=== PATIENT | male | born 1955 | race Asian ===

== ENCOUNTER 2018-04-30 11:10 | Observation (INO) | payer OTHER ==
--- NOTE | 2018-04-30 12:51 | PDOC ---
History of Present Illness <Annie Hamilton - Last Filed: 04/30/18 16:55> - General History Source: Patient Exam Limitations: No Limitations - History of Present Illness Initial Comments: 04/30/18 16:11 Patient is a 62-year-old male with past medical history of CAD, who presents to the emergency department today for lower extremity edema. Patient states he has had this problem for the past 2 months, however it was worse last night so he decided to come to the emergency department today. Patient admits to approximately a 20 pound weight gain over the last 3 months. He states he has gone from a size 34 pant to a size 42 pant. He states he has also gone up a shoe size. Denies calf pain, shortness of breath, orthopnea and difficulty breathing. Patient endorses recent travel to [facility] with return trip yesterday. States that Cr at the PCP office was 1.6 6 months months ago. <Nicole Dolan - Last Filed: 04/30/18 17:29> - General Chief Complaint: Edema Stated Complaint: EDEMA Time Seen by Provider: 04/30/18 12:22 Past History <Annie Hamilton - Last Filed: 04/30/18 16:55> - Travel Traveled outside of the country in the last 30 days: Yes If so, where?: [place] Close contact w/someone who was outside of country & ill: No - Past Medical History COPD: No CHF: No Diabetes: Yes HTN: Yes Hypercholesterolemia: Yes Other medical history: bph - Surgical History Gastric Stapling: No Neurologic Surgery: No - Immunization History Immunization Up to Date: No - Suicide/Smoking/Psychosocial Hx Smoking History: Former smoker Have you smoked in the past 12 months: No Information on smoking cessation initiated: No Hx Alcohol Use: No Drug/Substance Use Hx: No Substance Use Type: None <Nicole Dolan - Last Filed: 04/30/18 17:29> - Past Medical History Allergies/Adverse Reactions: Allergies Allergy/AdvReac Type Severity Reaction Status Date / Time Sulfa (Sulfonamide Allergy Verified 12/19/15 12:19 Antibiotics) Home Medications: Ambulatory Orders Gabapentin 300 mg PO TID 12/19/15 Losartan/Hydrochlorothiazide [Losartan-Hctz 100-25 mg Tab] 1 each PO DAILY 12/18 Omeprazole [Prilosec] 40 mg PO DAILY 12/19/15 Aspirin [ASA -] 81 mg PO DAILY 04/30/18 Bumetanide 1 mg PO DAILY 04/30/18 Clonazepam 0.5 mg PO DAILY 04/30/18 Clonidine HCl/Chlorthalidone [Clorpres 0.1-15 Tablet] 0.1 mg PO DAILY 04/30/18 Insulin Glargine,Hum.rec.anlog [Basaglar Kwikpen U-100] 16 unit SQ DAILY Metoprolol Tartrate 50 mg PO DAILY 04/30/18 Sitagliptin Phosphate [Januvia] 100 mg PO DAILY 04/30/18 Tamsulosin HCl [Flomax] 0.4 mg PO DAILY 04/30/18 Vitamin E 400 unit PO DAILY 04/30/18 Review of Systems - Review of Systems Able to Perform ROS?: Yes Comments:: 04/30/18 16:08 CONSTITUTIONAL: Absent: fever, chills, diaphoresis, generalized weakness, malaise, loss of appetite HEENT: Absent: rhinorrhea, nasal congestion, throat pain, throat swelling, difficulty swallowing, mouth swelling, ear pain, eye pain, visual Changes CARDIOVASCULAR: Present: peripheral edema Absent: chest pain, loss of consciousness, palpitations, irregular heart rate RESPIRATORY: Absent: cough, shortness of breath, dyspnea with exertion, orthopnea, wheezing, stridor, hemoptysis GASTROINTESTINAL: Absent: abdominal pain, abdominal distension, nausea, vomiting, diarrhea, constipation, melena, hematochezia GENITOURINARY: Absent: dysuria, frequency, urgency, hesitancy, hematuria, flank pain, genital pain MUSCULOSKELETAL: Absent: myalgia, arthralgia, joint swelling SKIN: Absent: rash, itching, pallor HEMATOLOGIC/IMMUNOLOGIC: Absent: easy bleeding, easy bruising, lymphadenopathy, frequent infections ENDOCRINE: Absent: unexplained weight gain, unexplained weight loss, heat intolerance, cold intolerance NEUROLOGIC: Absent: headache, focal weakness or paresthesias, dizziness, unsteady gait, seizure, mental status changes, bladder or bowel incontinence PSYCHIATRIC: Absent: anxiety, depression, suicidal or homicidal ideation, hallucinations. Is the patient limited Andorran proficient: No <Nicole Dolan - Last Filed: 04/30/18 17:29> *Physical Exam - Vital Signs Last Vital Signs Temp Pulse Resp BP Pulse Ox 98.1 F 76 16 130/84 96 04/30/18 11:42 04/30/18 11:42 04/30/18 11:42 04/30/18 11:42 04/30/18 11:42 <JoyAnnie hernandez - Last Filed: 04/30/18 16:55> - Vital Signs Last Vital Signs Temp Pulse Resp BP Pulse Ox 98.1 F 76 16 130/84 96 04/30/18 11:42 04/30/18 11:42 04/30/18 11:42 04/30/18 11:42 04/30/18 11:42 - Physical Exam Comments: 04/30/18 16:08 GENERAL: Well developed, well nourished. Awake and alert. No acute distress. HEENT: Normocephalic, atraumatic. PERRLA, EOMI. No conjunctival pallor. Sclera are non- icteric. Moist mucous membranes. Oropharynx is clear. NECK: Supple. Full ROM. No JVD. Carotid pulses 2+ and symmetric, without bruits. No thyromegaly. No lymphadenopathy. CARDIOVASCULAR: Regular rate and rhythm. No murmurs, rubs, or gallops. Distal pulses are 2+ and symmetric. PULMONARY: No evidence of respiratory distress. Lungs clear to auscultation bilaterally. No wheezing, rales or rhonchi. ABDOMINAL: Soft. Non-tender. Protuberant abdomen. No rebound or guarding. No organomegaly. Normoactive bowel sounds. MUSCULOSKELETAL Normal range of motion at all joints. No bony deformities or tenderness. No CVA tenderness. EXTREMITIES: 3+ pitting edema to the knees. No cyanosis. No clubbing. No edema. No calf tenderness. (-) holger's test SKIN: Warm and dry. Normal capillary refill. No rashes. No jaundice. NEUROLOGICAL: Alert, awake, appropriate. Cranial nerves 2-12 intact. No deficits to light touch and temperature in face, upper extremities and lower extremities. No motor deficits in the in face, upper extremities and lower extremities. Normoreflexic in the upper and lower extremities. Normal speech. Toes are down- going bilaterally. Gait is normal without ataxia. PSYCHIATRIC: Cooperative. Good eye contact. Appropriate mood and affect. <Nicole Dolan - Last Filed: 04/30/18 17:29> ED Treatment Course - LABORATORY CBC & Chemistry Diagram: 04/30/18 13:33 04/30/18 13:33 - ADDITIONAL ORDERS Additional order review: Laboratory Results 04/30/18 04/30/18 04/30/18 13:33 13:33 12:40 PT with INR 12.60 INR 1.07 Sodium 138 Potassium 4.0 Chloride 100 Carbon Dioxide 29 Anion Gap 9 BUN 33 H Creatinine 2.7 H Creat Clearance w eGFR 23.99 Random Glucose 201 H Calcium 8.7 Total Bilirubin 0.4 AST 28 ALT 26 Alkaline Phosphatase 60 Creatine Kinase 214 Creatine Kinase Index 0.6 CK-MB (CK-2) 1.3 Troponin I 0.02 B-Natriuretic Peptide 27.9 Total Protein 7.8 Albumin 3.7 Urine Color Colorless Urine Appearance Clear Urine pH 5.0 Ur Specific [place] 1.005 L Urine Protein Negative Urine Glucose (UA) Negative Urine Ketones Negative Urine Blood Negative Urine Nitrite Negative Urine Bilirubin Negative Urine Urobilinogen Negative Ur Leukocyte Esterase Negative 04/30/18 13:33 RBC 4.29 MCV 82.6 MCHC 33.7 RDW 13.1 MPV 7.8 D Neutrophils % 43.9 Lymphocytes % 29.8 Monocytes % 9.1 Eosinophils % 16.3 H Basophils % 0.9 - Consult/PCP Time Called: 16:41 (Paged Dr. Dona Traore) - Additional Consults Time Called: 16:56 (Paged Dr. Eric [facility]. ) <Annie Hamilton - Last Filed: 04/30/18 16:55> - LABORATORY CBC & Chemistry Diagram: 04/30/18 13:33 04/30/18 13:33 <Nicole Dloan - Last Filed: 04/30/18 17:29> Medical Decision Making - Medical Decision Making 04/30/18 16:19 Patient is a 62-year-old male with past medical history of CAD, who presents to the emergency department today for lower extremity edema x 3 months, worse the last two days. (+) recent travel -Exam with 3+ pitting edema, protuberent abdomen without TPP. Lungs CTAB -Labs with Cr of 2.7 up from reported Cr of 1.6 -Pt in for duplex US given recent travel from [facility] -CXR with boarderline normal sized heart without evidence of effusion -EKG: Rate 67 BPM, NSR. qtc 408/431. No acute ST-T wav changes. -Lasix 20 IV for edema in the setting of CKD -Will admit for TIMMY and diuresis 04/30/18 17:28 -doppler negative for DVT, howerver there was a lymph node measuring [id number] in the R groin -Admitted to [facility], will go to [facility] in morning. Case discussed w/ TYPING CHECKER Lizzie. <Nicole Dolan - Last Filed: 04/30/18 17:29> *DC/Admit/Observation/Transfer <Annie Hamilton - Last Filed: 04/30/18 16:55> - Discharge Dispostion Decision to Admit order: Yes <Nicole Dolan - Last Filed: 04/30/18 17:29> Diagnosis at time of Disposition: TIMMY (acute kidney injury), Peripheral edema - Discharge Dispostion Condition at time of disposition: Stable - Referrals Referrals: Shawanda Rosales MD [Primary Care Provider] - - Patient Instructions - Post Discharge Activity
--- NOTE | 2018-04-30 13:44 | PDOC ---
*Physical Exam - Vital Signs Last Vital Signs Temp Pulse Resp BP Pulse Ox 98.1 F 76 16 130/84 96 04/30/18 11:42 04/30/18 11:42 04/30/18 11:42 04/30/18 11:42 04/30/18 11:42 - Physical Exam Comments: 04/30/18 13:44 The patient was examined by [WEN Dolan] under my direct supervision. I personally evaluated the patient. I concur with the above findings and the plan of care. *DC/Admit/Observation/Transfer - Referrals Referrals: Shawanda Rosales MD [Primary Care Provider] - - Patient Instructions - Post Discharge Activity
[2018-04-30 13:59] LABS: URINE APPEARANCE CLEAR; URINE BILIRUBIN NEGATIVE (<2.0 mg/dL); URINE COLOR COLORLESS; URINE GLUCOSE (UA) NEGATIVE (NEGATIVE); URINE KETONE NEGATIVE (NEGATIVE); URINE LEUK ESTERASE NEGATIVE (NEGATIVE); URINE NITRITE NEGATIVE (NEGATIVE); URINE PROTEIN NEGATIVE (NEGATIVE); URINE UROBILINOGEN NEGATIVE mg/dL (0.2-1.0)
[2018-04-30 14:09] LABS: BASO % 0.9 % (0-2.0); EOS % 16.3 % (0-4.5); HEMATOCRIT 35.5 % (35.4-49); LYMPH % 29.8 % (8-40); MCH 27.9 pg (25.7-33.7); MCHC 33.7 g/dl (32.0-35.9); MEAN CELL VOLUME 82.6 fl (80-96); MEAN PLT VOLUME 7.8 fl (7.5-11.1); MONO % 9.1 % (3.8-10.2); NEUT % 43.9 % (42.8-82.8); PLATELET COUNT 326 K/MM3 (134-434); RBC 4.29 M/mm3 (4.00-5.60); RDW 13.1 % (11.9-15.9); WHITE BLOOD COUNT 9.2 K/mm3 (4.0-10.0)
[2018-04-30 14:26] LABS: ALBUMIN 3.7 g/dl (3.4-5.0); ALK PHOS 60 U/L (45-117); ANION GAP 9 MMOL/L (8-16); BILIRUBIN,TOTAL 0.4 mg/dL (0.2-1); BLOOD UREA NITROGEN 33 mg/dL (7-18); CALCIUM 8.7 mg/dL (8.5-10.1); CHLORIDE 100 mmol/L (98-107); CO2 29 mmol/L (21-32); CREATININE 2.7 mg/dL (0.55-1.3); GLUCOSE,RANDOM 201 mg/dL (74-106); N-TERMINAL BNP 27.9 pg/ml (5-125); SGOT/AST 28 U/L (15-37); SGPT/ALT 26 U/L (13-61); SODIUM 138 mmol/L (136-145); TOT PROT 7.8 g/dl (6.4-8.2)
[2018-04-30 14:28] LABS: INR 1.07 (0.83-1.09); PROTHROMBIN TIME (PATIENT) 12.6 SEC (9.7-13.0)
--- NOTE | 2018-04-30 15:16 | EKG ---
Test Reason : Blood Pressure : / mmHG Vent. Rate : 067 BPM Atrial Rate : 067 BPM P-R Int : 172 ms QRS Dur : 090 ms QT Int : 408 ms P-R-T Axes : 028 058 050 degrees QTc Int : 431 ms NORMAL SINUS RHYTHM MINIMAL VOLTAGE CRITERIA FOR LVH, MAY BE NORMAL VARIANT BORDERLINE ECG NO PREVIOUS ECGS AVAILABLE Confirmed by DEENA LEVIN MD ([id number]) on 04/30/2018 3:16:05 PM Referred By: Confirmed By:DEENA LEVIN MD
[2018-04-30] MEDS ORDERED: FUROSEMIDE 40 MG/4 ML INJECTABLE VIAL IVPUSH ONE (16:05)
[2018-04-30] MEDS ORDERED: FUROSEMIDE 40 MG/4 ML INJECTABLE VIAL ONE (16:51)
--- NOTE | 2018-04-30 21:05 | HP ---
CHIEF COMPLAINT: Swelling to abdomen and lower legs PCP: Dr. Otis Rosales Homebound Teacher: Dr. Quinn HISTORY OF PRESENT ILLNESS: 62 year old male with a PMH significant for DM2 on insulin, HTN, and BPH presented to the ED today with increased swelling to lower legs and abdomen. He reports the swelling has gradually increased over the past month. He reports a 20 lb weight gain over the past 3 months; he has even gone up several pants sizes due to his increased abdominal girth. He is followed by reel slitter Dr. Quinn who did a renal US in his office about 2 months ago and was told he needed further renal work up (patient is unsure of which diagnostics were recommended). However, patient was set to travel to his home country of [facility] for 2 months, so he was unable to follow up. Patient endorses taking his medications regularly. Denies chest pain, SOB, hemoptysis, fever, dizziness , syncope, n/v/d. Given Lasix 20 mg IV, patient reported urination following administration. He reports now feeling "80% better" than when he first arrived. Labs significant for BUN/Cr 33/2.7, his last Cr was 1.65 on 03/09/18. Troponin #1 , #2 and #2 pending, negative UA negative, ECG unremarkable for acute ischemia , CXR negative for pleural effusion, and no DVT on evan doppler of lower legs unremarkable. Recent Travel: [facility] for 2 months, returned yesterday. PAST MEDICAL HISTORY: HTN DM2 on insulin BPH PAST SURGICAL HISTORY: None Social History: Smoking: Former, quit 10 years ago. Smoked for 10 - 15 years. Alcohol: None Drugs: Denies Family History: Father - Kidney cancer, age 90 Allergies Sulfa (Sulfonamide Antibiotics) Allergy (Verified 12/19/15 12:19) HOME MEDICATIONS: Home Medications Medication Instructions Recorded Gabapentin 300 mg PO TID 12/19/15 Losartan/Hydrochlorothiazide 1 each PO DAILY 12/19/15 [Losartan-Hctz 100-25 mg Tab] Omeprazole [Prilosec] 40 mg PO DAILY 12/19/15 Aspirin [ASA -] 81 mg PO DAILY 04/30/18 Bumetanide 1 mg PO DAILY 04/30/18 Clonazepam 0.5 mg PO DAILY 04/30/18 Clonidine HCl/Chlorthalidone 0.1 mg PO DAILY 04/30/18 [Clorpres 0.1-15 Tablet] Insulin Glargine,Hum.rec.anlog 14 units SQ HS 04/30/18 [Basaglar Kwikpen U-100] Insulin Glargine,Hum.rec.anlog 16 unit SQ DAILY 04/30/18 [Basaglar Kwikpen U-100] Metoprolol Tartrate 50 mg PO DAILY 04/30/18 Sitagliptin Phosphate [Januvia] 100 mg PO DAILY 04/30/18 Tamsulosin HCl [Flomax] 0.4 mg PO DAILY 04/30/18 Vitamin E 400 unit PO DAILY 04/30/18 REVIEW OF SYSTEMS CONSTITUTIONAL: (+) Weight gain Absent: fever, chills, diaphoresis, generalized weakness, malaise, loss of appetite HEENT: Absent: rhinorrhea, nasal congestion, throat pain, throat swelling, difficulty swallowing, mouth swelling, ear pain, eye pain, visual changes CARDIOVASCULAR: (+) Peripheral edema Absent: chest pain, syncope, palpitations, irregular heart rate, lightheadedness RESPIRATORY: Absent: cough, shortness of breath, dyspnea with exertion, orthopnea, wheezing, stridor, hemoptysis GASTROINTESTINAL: (+) Abdominal distension Absent: abdominal pain, nausea, vomiting, diarrhea, constipation, melena, hematochezia GENITOURINARY: (+) Frequency Absent: dysuria, urgency, hesitancy, hematuria, flank pain, genital pain MUSCULOSKELETAL: (+) Back and neck pain, chronic Absent: myalgia, arthralgia, joint swelling SKIN: Absent: rash, itching, pallor HEMATOLOGIC/IMMUNOLOGIC: Absent: easy bleeding, easy bruising, lymphadenopathy, frequent infections ENDOCRINE: Absent: unexplained weight gain, unexplained weight loss, heat intolerance, cold intolerance NEUROLOGIC: Absent: headache, focal weakness or paresthesias, dizziness, unsteady gait, seizure, mental status changes, bladder or bowel incontinence PSYCHIATRIC: Absent: anxiety, depression, suicidal or homicidal ideation, hallucinations. PHYSICAL EXAMINATION Vital Signs - 24 hr 04/30/18 04/30/18 11:42 19:28 Temperature 98.1 F 98.0 F Pulse Rate 76 Pulse Rate [ 66 Apical] Respiratory 16 18 Rate Blood Pressure 130/84 Blood Pressure 156/99 [Right Arm] O2 Sat by Pulse 96 98 Oximetry (%) GENERAL: Awake, alert, and fully oriented, in no acute distress. HEAD: Normal with no signs of trauma. EYES: +Glasses, pupils equal, round and reactive to light, extraocular movements intact, sclera anicteric, conjunctiva clear. No lid lag. EARS, NOSE, THROAT: nares patent, oropharynx clear without exudates. Moist mucous membranes. NECK: Normal range of motion, supple without lymphadenopathy, JVD, or masses. LUNGS: Breath sounds equal, clear to auscultation bilaterally. No wheezes, and no crackles. No accessory muscle use. HEART: Regular rate and rhythm, normal S1 and S2 without murmur, rub or gallop. ABDOMEN: Distended, nontender, normoactive bowel sounds, no guarding, no rebound, no masses. No hepatomegaly or splenomegaly. MUSCULOSKELETAL: Normal range of motion at all joints. No bony deformities or tenderness. No CVA tenderness. UPPER EXTREMITIES: 2+ pulses, warm, well-perfused. No cyanosis. No clubbing. No peripheral edema. LOWER EXTREMITIES: 2+ pitting edema to b/l LE, no weeping, warm, well-perfused. No calf tenderness. NEUROLOGICAL: No facial droop, tongue midline, normal speech. Normal gait. PSYCHIATRIC: Cooperative. Good eye contact. Appropriate mood and affect. SKIN: Warm, dry, normal turgor, no rashes or lesions noted, normal capillary refill. Laboratory Results - last 24 hr 04/30/18 04/30/18 04/30/18 12:40 13:33 13:33 WBC 9.2 RBC 4.29 Hgb 12.0 Hct 35.5 MCV 82.6 MCH 27.9 MCHC 33.7 RDW 13.1 Plt Count 326 MPV 7.8 D Absolute Neuts (auto) 4.0 Neutrophils % 43.9 Lymphocytes % 29.8 Monocytes % 9.1 Eosinophils % 16.3 H Basophils % 0.9 Nucleated RBC % 0 PT with INR 12.60 INR 1.07 Sodium Potassium Chloride Carbon Dioxide Anion Gap BUN Creatinine Creat Clearance w eGFR Random Glucose Calcium Total Bilirubin AST ALT Alkaline Phosphatase Creatine Kinase Creatine Kinase Index CK-MB (CK-2) Troponin I B-Natriuretic Peptide Total Protein Albumin Urine Color Colorless Urine Appearance Clear Urine pH 5.0 Ur Specific [place] 1.005 L Urine Protein Negative Urine Glucose (UA) Negative Urine Ketones Negative Urine Blood Negative Urine Nitrite Negative Urine Bilirubin Negative Urine Urobilinogen Negative Ur Leukocyte Esterase Negative 04/30/18 13:33 WBC RBC Hgb Hct MCV MCH MCHC RDW Plt Count MPV Absolute Neuts (auto) Neutrophils % Lymphocytes % Monocytes % Eosinophils % Basophils % Nucleated RBC % PT with INR INR Sodium 138 Potassium 4.0 Chloride 100 Carbon Dioxide 29 Anion Gap 9 BUN 33 H Creatinine 2.7 H Creat Clearance w eGFR 23.99 Random Glucose 201 H Calcium 8.7 Total Bilirubin 0.4 AST 28 ALT 26 Alkaline Phosphatase 60 Creatine Kinase 214 Creatine Kinase Index 0.6 CK-MB (CK-2) 1.3 Troponin I 0.02 B-Natriuretic Peptide 27.9 Total Protein 7.8 Albumin 3.7 Urine Color Urine Appearance Urine pH Ur Specific [place] Urine Protein Urine Glucose (UA) Urine Ketones Urine Blood Urine Nitrite Urine Bilirubin Urine Urobilinogen Ur Leukocyte Esterase ECG -NSR -Vent rate 67 -QT/QTc 408/431 CXR Degenerative changes with wedging, no sign of effusion. Venous Doppler, lower extremities doppler negative for DVT. Right inguinal lymph node measuring 4cm x 1cm. ASSESSMENT/PLAN: 62 year old male with a PMH significant for DM, HTN, and BPH presented to the ED today with increased swelling to lower legs and abdomen. He was admitted for TIMMY. TIMMY with possible anasarca -GFR 29 ml/min -Continue home Bumetanide 1 mg qday -Daily weights -I&Os -Monitor BMP -Renal US ordered -Echo ordered -Consult with patient's reel slitter Dr. Quinn ordered. DM -Hold home Januvia -Home Glargine changed to formulary Levemir 16 U qam and 14 U QHS -SS with Novolog -Monitor glucose AC/HS -Gabapentin 300 mg TID for neuropathy -Diabetic diet HTN -Clonidine 0.1 mg qday -HCZT 25 mg -Losartan 100 mg -Metoprolol Tartrate 50 mg qday BPH -Tamsulosin 0.4 mg qday FEN --PO intake adequate --Electrolytes replete as indicated --Diabetic/sodium restricted diet DVT Prophylaxis --Heparin SQ Dispo: pt currently requires further inpatient care. FULL CODE Visit type - Emergency Visit Emergency Visit: Yes ED Registration Date: 04/30/18 Care time: The patient presented to the Emergency Department on the above date and was hospitalized for further evaluation of their emergent condition. - New Patient This patient is new to me today: No - Critical Care Critical Care patient: No
[2018-04-30] MEDS ORDERED: GABAPENTIN 100 MG CAPSULE (FP) ONE (23:55)
[2018-04-30] MEDS ORDERED: HEPARIN NA (PORCINE) 5,000 UNITS/ML 1ML VIAL ONE (23:55)
[2018-04-30] MEDS ORDERED: INSULIN (LEVEMIR) 100 UNITS/ML UNITS SQ ONE (23:56)
[2018-05-01] MEDS: HEPARIN NA (PORCINE) 5,000 UNITS/ML 1ML VIAL SQ SCH ×3 (00:08→21:40)
[2018-05-01] MEDS: INSULIN (LEVEMIR) 100 UNITS/ML UNITS SQ SCH ×3 (00:08→21:45)
[2018-05-01] MEDS: INSULIN SLIDING SCALE (NOVOLOG) 1 VIAL SQ SCH ×5 (00:09→21:46)
[2018-05-01] MEDS: GABAPENTIN 300 MG CAPSULE (FP) PO SCH ×4 (00:09→21:40)
[2018-05-01 06:31] VITALS: BMI 27.3
[2018-05-01 08:46] LABS: HEMOGLOBIN 12.2 GM/dL (11.7-16.9); MCH 26.6 pg (25.7-33.7); MCHC 32.2 g/dl (32.0-35.9); MEAN CELL VOLUME 82.7 fl (80-96); MEAN PLT VOLUME 7.8 fl (7.5-11.1); PLATELET COUNT 329 K/MM3 (134-434); RBC 4.59 M/mm3 (4.00-5.60); RDW 13.1 % (11.9-15.9); WHITE BLOOD COUNT 11.2 K/mm3 (4.0-10.0)
[2018-05-01 09:33] LABS: ANION GAP 12 MMOL/L (8-16); BLOOD UREA NITROGEN 33 mg/dL (7-18); CALCIUM 8.5 mg/dL (8.5-10.1); CHLORIDE 97 mmol/L (98-107); CO2 30 mmol/L (21-32); CREATININE 2.6 mg/dL (0.55-1.3); GLUCOSE,RANDOM 191 mg/dL (74-106); POTASSIUM 4.2 mmol/L (3.5-5.1); SODIUM 139 mmol/L (136-145)
[2018-05-01] MEDS ORDERED: BUMETANIDE 1 MG TABLET PO SCH ×2 (10:00)
[2018-05-01] MEDS ORDERED: HYDROCHLOROTHIAZIDE 25 MG TABLET (FP) PO SCH (10:00)
[2018-05-01] MEDS ORDERED: PATIENT'S OWN MEDICATION (NON-FORMULARY) (Losartan/Hydrochlorothiazide [Losartan-Hctz 100- PO SCH (10:00)
[2018-05-01] MEDS ORDERED: CHLORTHALIDONE PO SCH (10:00)
[2018-05-01] MEDS ORDERED: LOSARTAN POTASSIUM 100 MG TABLET PO SCH (10:00)
[2018-05-01] MEDS ORDERED: [UNRECOGNIZED DRUG - OTHER] PO SCH (10:00)
[2018-05-01] MEDS ORDERED: FUROSEMIDE 40 MG/4 ML INJECTABLE VIAL IVPUSH SCH (10:00)
[2018-05-01] MEDS ORDERED: CLONIDINE PO SCH (10:00)
[2018-05-01] MEDS ORDERED: PT OWN MED DRAWER 7, Y5N ONE (10:08)
[2018-05-01] MEDS: ASPIRIN 81 MG CHEWABLE TABLETS PO SCH (10:11)
[2018-05-01] MEDS: TAMSULOSIN HCL 0.4 MG CAP PO SCH (10:11)
--- NOTE | 2018-05-01 10:44 | PN ---
Progress Note (short form) - Note Progress Note: events noted Denies any shortness of breath or cough Feels tired Vital Signs - 24 hr 04/30/18 04/30/18 05/01/18 11:42 19:28 04:25 Temperature 98.1 F 98.0 F 98.8 F Pulse Rate 76 Pulse Rate [ 66 74 Apical] Respiratory 16 18 18 Rate Blood Pressure 130/84 Blood Pressure 156/99 109/78 [Right Arm] O2 Sat by Pulse 96 98 99 Oximetry (%) 05/01/18 05/01/18 05/01/18 06:27 06:36 09:34 Temperature 97.5 F L 98.3 F Pulse Rate 65 73 Pulse Rate [ Apical] Respiratory 20 20 18 Rate Blood Pressure 134/79 151/94 Blood Pressure [Right Arm] O2 Sat by Pulse 98 Oximetry (%) Current Medications Generic Name Dose Route Start Last Admin Trade Name Freq PRN Reason Stop Dose Admin Aspirin 81 mg 05/01/18 10:00 05/01/18 10:11 Asa - PO 81 mg DAILY [facility] Administration Bumetanide 1 mg 05/01/18 10:00 Bumex - PO DAILY [facility] Gabapentin 300 mg 04/30/18 22:00 05/01/18 06:14 Neurontin - PO 300 mg TID [facility] Administration Heparin Sodium (Porcine) 5,000 unit 04/30/18 22:00 05/01/18 06:14 Heparin - SQ 5,000 unit TID [facility] Administration Hydrochlorothiazide 25 mg 05/01/18 10:00 05/01/18 10:11 Hctz - PO 25 mg DAILY [facility] Administration Insulin Aspart 1 vial 04/30/18 22:00 05/01/18 06:15 Novolog Vial Sliding Scale - SQ Not Given ACHS [facility] Protocol Insulin Detemir 16 units 05/01/18 07:00 05/01/18 06:14 Levemir Vial SQ 16 units 0700 [facility] Administration Insulin Detemir 14 units 04/30/18 22:00 05/01/18 00:08 Levemir Vial SQ 14 unit HS [facility] Administration Losartan Potassium 100 mg 05/01/18 10:00 Losartan Potassium PO DAILY [facility] Metoprolol Succinate 50 mg 05/01/18 10:00 05/01/18 10:11 Toprol Xl - PO 50 mg DAILY [facility] Administration Non-Formulary Medication 0.1 mg 05/01/18 10:00 Clonidine Hcl/Chlorthalidone [Clorpres 0.1-15 Tablet] PO DAILY [facility] Tamsulosin HCl 0.4 mg 05/01/18 08:30 05/01/18 10:11 Flomax - PO 0.4 mg 0830 [facility] Administration Laboratory Results - last 24 hr 04/30/18 04/30/18 04/30/18 12:40 13:33 13:33 WBC 9.2 RBC 4.29 Hgb 12.0 Hct 35.5 MCV 82.6 MCH 27.9 MCHC 33.7 RDW 13.1 Plt Count 326 MPV 7.8 D Absolute Neuts (auto) 4.0 Neutrophils % 43.9 Lymphocytes % 29.8 Monocytes % 9.1 Eosinophils % 16.3 H Basophils % 0.9 Nucleated RBC % 0 PT with INR 12.60 INR 1.07 Sodium Potassium Chloride Carbon Dioxide Anion Gap BUN Creatinine Creat Clearance w eGFR POC Glucometer Random Glucose Calcium Total Bilirubin AST ALT Alkaline Phosphatase Creatine Kinase Creatine Kinase Index CK-MB (CK-2) Troponin I B-Natriuretic Peptide Total Protein Albumin Urine Color Colorless Urine Appearance Clear Urine pH 5.0 Ur Specific [place] 1.005 L Urine Protein Negative Urine Glucose (UA) Negative Urine Ketones Negative Urine Blood Negative Urine Nitrite Negative Urine Bilirubin Negative Urine Urobilinogen Negative Ur Leukocyte Esterase Negative 04/30/18 04/30/18 05/01/18 13:33 23:35 05:43 WBC RBC Hgb Hct MCV MCH MCHC RDW Plt Count MPV Absolute Neuts (auto) Neutrophils % Lymphocytes % Monocytes % Eosinophils % Basophils % Nucleated RBC % PT with INR INR Sodium 138 Potassium 4.0 Chloride 100 Carbon Dioxide 29 Anion Gap 9 BUN 33 H Creatinine 2.7 H Creat Clearance w eGFR 23.99 POC Glucometer [phone] 61 Random Glucose 201 H Calcium 8.7 Total Bilirubin 0.4 AST 28 ALT 26 Alkaline Phosphatase 60 Creatine Kinase 214 Creatine Kinase Index 0.6 CK-MB (CK-2) 1.3 Troponin I 0.02 B-Natriuretic Peptide 27.9 Total Protein 7.8 Albumin 3.7 Urine Color Urine Appearance Urine pH Ur Specific [place] Urine Protein Urine Glucose (UA) Urine Ketones Urine Blood Urine Nitrite Urine Bilirubin Urine Urobilinogen Ur Leukocyte Esterase 05/01/18 05/01/18 05/01/18 06:13 07:00 07:00 WBC 11.2 H RBC 4.59 Hgb 12.2 Hct 38.0 MCV 82.7 MCH 26.6 MCHC 32.2 RDW 13.1 Plt Count 329 MPV 7.8 Absolute Neuts (auto) Neutrophils % Lymphocytes % Monocytes % Eosinophils % Basophils % Nucleated RBC % PT with INR INR Sodium Potassium Chloride Carbon Dioxide Anion Gap BUN Creatinine Creat Clearance w eGFR POC Glucometer 130 Random Glucose Calcium Total Bilirubin AST ALT Alkaline Phosphatase Creatine Kinase 198 Creatine Kinase Index 0.5 CK-MB (CK-2) < 1.0 Troponin I < 0.02 B-Natriuretic Peptide Total Protein Albumin Urine Color Urine Appearance Urine pH Ur Specific [place] Urine Protein Urine Glucose (UA) Urine Ketones Urine Blood Urine Nitrite Urine Bilirubin Urine Urobilinogen Ur Leukocyte Esterase 05/01/18 07:00 WBC RBC Hgb Hct MCV MCH MCHC RDW Plt Count MPV Absolute Neuts (auto) Neutrophils % Lymphocytes % Monocytes % Eosinophils % Basophils % Nucleated RBC % PT with INR INR Sodium 139 Potassium 4.2 Chloride 97 L Carbon Dioxide 30 Anion Gap 12 BUN 33 H Creatinine 2.6 H Creat Clearance w eGFR 25.05 POC Glucometer Random Glucose 191 H Calcium 8.5 Total Bilirubin AST ALT Alkaline Phosphatase Creatine Kinase 211 Creatine Kinase Index CK-MB (CK-2) Troponin I < 0.02 B-Natriuretic Peptide Total Protein Albumin Urine Color Urine Appearance Urine pH Ur Specific [place] Urine Protein Urine Glucose (UA) Urine Ketones Urine Blood Urine Nitrite Urine Bilirubin Urine Urobilinogen Ur Leukocyte Esterase S1 and S2 regular Lungs clear Abdomen soft, nontender Trace edema Plan Discontinue Charli inhibitors, arb --No NSAIDs --Renal evaluation --patient denies taking NSAIDs, he was started on diuretics on his trip to [facility] -- Continue diuretics -- Monitor renal function Problem List - Problems (1) TIMMY (acute kidney injury) Code(s): N17.9 - ACUTE KIDNEY FAILURE, UNSPECIFIED (2) Peripheral edema Code(s): R60.9 - EDEMA, UNSPECIFIED
[2018-05-01] MEDS ORDERED: LOSARTAN POTASSIUM 50 MG TABLET (FP) PO SCH (11:12)
[2018-05-01] MEDS ORDERED: INSULIN (NOVOLOG) ASPART 100 UNITS/ML 10ML VIAL ONE ×2 (11:24→21:15)
--- NOTE | 2018-05-01 15:01 | CONSULT ---
Consult Consult Specialty:: Nephrology Reason for Consultation:: CKD - History of Present Illness Chief Complaint: lower ext edema History of Present Illness: Pt is a 62 year old male with pmhx of DM, HTN, CKD, and BPH who presents to the ER with lower ext edema. He says that it has been getting worse and that he had a 20 pound weight gain. He was in [facility] where he went to see a doctor that started him on bumetanide 1 mg daily. He says that is did help with the edema. He did follow with Dr Quinn a few months ago but did not stay for his renal workup. He was advised not to travel however he did. I was called to evaluate him for elevated creatinine. He denies nsaid use. He was given lasix in the ER and felt better with it. - History Source History Provided By: Patient - Past Medical History Cardio/Vascular: Yes: HTN Gastrointestinal: Yes: GERD Renal/: Yes: Renal Inusuff Endocrine: Yes: Diabetes Mellitus - Alcohol/Substance Use Hx Alcohol Use: No - Smoking History Smoking history: Former smoker Have you smoked in the past 12 months: No If you are a former smoker, when did you quit?: 10 years ago Home Medications - Allergies Allergies/Adverse Reactions: Allergies Allergy/AdvReac Type Severity Reaction Status Date / Time Sulfa (Sulfonamide Allergy Verified 12/19/15 12:19 Antibiotics) - Home Medications Home Medications: Ambulatory Orders Gabapentin 300 mg PO TID 12/19/15 Losartan/Hydrochlorothiazide [Losartan-Hctz 100-25 mg Tab] 1 each PO DAILY 12/18 Omeprazole [Prilosec] 40 mg PO DAILY 12/19/15 Aspirin [ASA -] 81 mg PO DAILY 04/30/18 Bumetanide 1 mg PO DAILY 04/30/18 Clonazepam 0.5 mg PO DAILY 04/30/18 Clonidine HCl/Chlorthalidone [Clorpres 0.1-15 Tablet] 0.1 mg PO DAILY 04/30/18 Insulin Glargine,Hum.rec.anlog [Basaglar Kwikpen U-100] 14 units SQ HS 04/30/18 Insulin Glargine,Hum.rec.anlog [Basaglar Kwikpen U-100] 16 unit SQ DAILY Metoprolol Tartrate 50 mg PO DAILY 04/30/18 Sitagliptin Phosphate [Januvia] 100 mg PO DAILY 04/30/18 Tamsulosin HCl [Flomax] 0.4 mg PO DAILY 04/30/18 Vitamin E 400 unit PO DAILY 04/30/18 Family Disease History - Family Disease History Family Disease History: Other: Father (kidney disease) Review of Systems - Review of Systems Constitutional: reports: Malaise Eyes: reports: No Symptoms HENT: reports: No Symptoms Neck: reports: No Symptoms Cardiovascular: reports: Edema, Shortness of Breath Respiratory: reports: SOB on Exertion Genitourinary: reports: No Symptoms Musculoskeletal: reports: No Symptoms Integumentary: reports: No Symptoms Neurological: reports: No Symptoms Endocrine: reports: No Symptoms Hematology/Lymphatic: reports: No Symptoms Psychiatric: reports: No Symptoms Physical Exam Vital Signs: Vital Signs Temperature 98.3 F 05/01/18 09:34 Pulse Rate 73 05/01/18 09:34 Respiratory Rate 18 05/01/18 09:34 Blood Pressure 151/94 05/01/18 09:34 O2 Sat by Pulse Oximetry (%) 99 05/01/18 09:00 Constitutional: Yes: Calm Eyes: Yes: Conjunctiva Clear HENT: Yes: Atraumatic Cardiovascular: Yes: S1, S2 Respiratory: Yes: CTA Bilaterally Gastrointestinal: Yes: Soft Renal/: Yes: WNL Musculoskeletal: Yes: WNL Edema: Yes Edema: LLE: 1+, RLE: 1+ Neurological: Yes: Oriented Psychiatric: Yes: Oriented Labs: CBC, BMP 05/01/18 07:00 05/01/18 07:00 Laboratory Tests 04/30/18 04/30/18 04/30/18 12:40 13:33 13:33 WBC Hgb 12.0 Creatinine 2.7 H Ur Specific Alexander 1.005 L Urine Protein Negative Urine Blood Negative 05/01/18 05/01/18 07:00 07:00 WBC 11.2 H Hgb 12.2 Creatinine 2.6 H Ur Specific Alexander Urine Protein Urine Blood Imaging - Results Chest X-ray: Report Reviewed Ultrasound: Report Reviewed Problem List - Problems (1) CKD (chronic kidney disease) Code(s): N18.9 - CHRONIC KIDNEY DISEASE, UNSPECIFIED (2) Peripheral edema Code(s): R60.9 - EDEMA, UNSPECIFIED Assessment/Plan Current Medications Generic Name Dose Route Start Last Admin Trade Name Freq PRN Reason Stop Dose Admin Aspirin 81 mg 05/01/18 10:00 05/01/18 10:11 Asa - PO 81 mg DAILY ARACELI Administration Gabapentin 300 mg 04/30/18 22:00 05/01/18 13:58 Neurontin - PO 300 mg TID ARACELI Administration Heparin Sodium (Porcine) 5,000 unit 05/01/18 22:00 Heparin - SQ BID ARACELI Hydralazine HCl 25 mg 05/01/18 22:00 Apresoline - PO BID ARACELI Insulin Aspart 1 vial 04/30/18 22:00 05/01/18 11:25 Novolog Vial Sliding Scale - SQ 2 unit ACHS ARACELI Administration Protocol Insulin Detemir 16 units 05/01/18 07:00 05/01/18 06:14 Levemir Vial SQ 16 units 0700 ARACELI Administration Insulin Detemir 14 units 04/30/18 22:00 05/01/18 00:08 Levemir Vial SQ 14 unit HS ARACELI Administration Metoprolol Succinate 50 mg 05/01/18 10:00 05/01/18 10:11 Toprol Xl - PO 50 mg DAILY ARACELI Administration Tamsulosin HCl 0.4 mg 05/01/18 08:30 05/01/18 10:11 Flomax - PO 0.4 mg 0830 ARACELI Administration Impression 1. CKD 2. HTN 3. DM 4. edema/fluid overload 5. BPH Plan - ua neg for blood or protein - cont with diuretics - check echo - renal ultrasound reviewed - cont to monitor renal function - could be cardiorenal disease in the absence of abnormalities on UA - will follow - will call for outpt records - discussed low salt diet with patient and family at length. He is eating food from home which is very salty. Dr Emanuel
--- NOTE | 2018-05-01 15:31 | ECHO ---
Name: KELVIN PEREIRA Exam:Adult Echocardiogram Study Date: 05/01/2018 12:30 PM Age: 62 yrs Reason For Study: TIMMY with anasarca Height: 64 in Weight: 160 lb BSA: 1.8 m2 MMode/2D Measurements & Calculations IVSd: 0.98 cm Ao root diam: 3.6 cm LVIDd: 4.8 cm LA dimension: 3.7 cm LVIDs: 3.2 cm ACS: 1.9 cm LVPWd: 0.92 cm IVSs: 1.2 cm LVPWs: 1.1 cm EDV(Teich): 108.1 ml ESV(Teich): 41.5 ml Doppler Measurements & Calculations MV E max cristian: 49.6 cm/sec Ao V2 max: 157.2 cm/sec MV A max cristian: 72.1 cm/sec Ao max P.9 mmHg MV E/A: 0.69 Ao V2 mean: 95.8 cm/sec Ao mean P.5 mmHg Ao V2 VTI: 28.3 cm MR max cristian: 470.6 cm/sec TR max cristian: 195.7 cm/sec MR max P.6 mmHg TR max P.3 mmHg PI end-d cristian: 120.8 cm/sec Med Peak E' Cristian: 4.8 cm/sec Med E/e': 10.4 Lat Peak E' Cristian: 6.7 cm/sec Lat E/e': 7.4 Procedure A complete two-dimensional transthoracic echocardiogram was performed (2D, M-mode, Doppler and color flow Doppler). Left Ventricle The left ventricular size, thickness and function are normal. The left ventricular ejection fraction is normal. Ejection Fraction = 55-60%. The left ventricular wall motion is normal. Right Ventricle The right ventricle is normal in size and function. Atria Normal left and right atrial size and function. Mitral Valve There is trace mitral regurgitation. Tricuspid Valve No tricuspid regurgitation. There was insufficient TR detected to calculate RV systolic pressure. Aortic Valve The aortic valve is trileaflet. No hemodynamically significant valvular aortic stenosis. No aortic regurgitation is present. Pulmonic Valve There is no pulmonic valvular regurgitation. Great Vessels The aortic root is normal size. Pericardium/Pleura There is no pericardial effusion. Interpretation Summary The left ventricular size, thickness and function are normal The right ventricle is normal in size and function. There is trace mitral regurgitation. MD Chino Bennett 05/01/2018 03:30 PM
[2018-05-01 19:41] VITALS: TEMP 98.2
[2018-05-01] MEDS: hydrALAZINE HCL 25 MG TABLET (FP) PO SCH (21:40)
[2018-05-02] MEDS: GABAPENTIN 300 MG CAPSULE (FP) PO SCH (05:53)
[2018-05-02] MEDS: INSULIN SLIDING SCALE (NOVOLOG) 1 VIAL SQ SCH ×2 (05:59→11:07)
[2018-05-02] MEDS: INSULIN (LEVEMIR) 100 UNITS/ML UNITS SQ SCH (05:59)
[2018-05-02 07:49] LABS: ALBUMIN 3.5 g/dl (3.4-5.0); ALK PHOS 57 U/L (45-117); ANION GAP 8 MMOL/L (8-16); BILIRUBIN,TOTAL 0.3 mg/dL (0.2-1); BLOOD UREA NITROGEN 27 mg/dL (7-18); CALCIUM 8.9 mg/dL (8.5-10.1); CHLORIDE 100 mmol/L (98-107); CO2 30 mmol/L (21-32); CREATININE 2.3 mg/dL (0.55-1.3); GLUCOSE,RANDOM 115 mg/dL (74-106); POTASSIUM 4.3 mmol/L (3.5-5.1); SGOT/AST 24 U/L (15-37); SGPT/ALT 25 U/L (13-61); SODIUM 138 mmol/L (136-145); TOT PROT 7.4 g/dl (6.4-8.2)
[2018-05-02] MEDS: TAMSULOSIN HCL 0.4 MG CAP PO SCH (09:41)
[2018-05-02] MEDS: ASPIRIN 81 MG CHEWABLE TABLETS PO SCH (09:42)
[2018-05-02] MEDS: HEPARIN NA (PORCINE) 5,000 UNITS/ML 1ML VIAL SQ SCH (09:42)
[2018-05-02] MEDS: hydrALAZINE HCL 25 MG TABLET (FP) PO SCH (09:42)
[2018-05-02] MEDS ORDERED: BUMETANIDE 1 MG TABLET PO SCH (10:00)
--- NOTE | 2018-05-02 11:12 | PN ---
Progress Note, Physician History of Present Illness: Pt seen and examined at bedside. He is awake and alert. He denies shortness of breath. - Current Medication List Current Medications: Active Medications Aspirin (Asa -) 81 mg PO DAILY [facility] Last Admin: 05/02/18 09:42 Dose: 81 mg Gabapentin (Neurontin -) 300 mg PO TID [facility] Last Admin: 05/02/18 05:53 Dose: 300 mg Heparin Sodium (Porcine) (Heparin -) 5,000 unit SQ BID [facility] Last Admin: 05/02/18 09:42 Dose: 5,000 unit Hydralazine HCl (Apresoline -) 25 mg PO BID [facility] Last Admin: 05/02/18 09:42 Dose: 25 mg Insulin Aspart (Novolog Vial Sliding Scale -) 1 vial SQ ACHS [facility]; Protocol Last Admin: 05/02/18 11:07 Dose: 4 unit Insulin Detemir (Levemir Vial) 16 units SQ 0700 [facility] Last Admin: 05/02/18 05:59 Dose: 16 units Insulin Detemir (Levemir Vial) 14 units SQ HS [facility] Last Admin: 05/01/18 21:45 Dose: 14 unit Metoprolol Succinate (Toprol Xl -) 50 mg PO DAILY [facility] Last Admin: 05/02/18 09:42 Dose: 50 mg Tamsulosin HCl (Flomax -) 0.4 mg PO 0830 [facility] Last Admin: 05/02/18 09:41 Dose: 0.4 mg - Objective Vital Signs: Vital Signs Temperature 98.2 F 05/02/18 06:00 Pulse Rate 71 05/02/18 06:00 Respiratory Rate 16 05/02/18 06:00 Blood Pressure 115/82 05/02/18 06:00 O2 Sat by Pulse Oximetry (%) 98 05/01/18 21:00 Constitutional: Yes: Calm Eyes: Yes: Conjunctiva Clear HENT: Yes: Atraumatic Cardiovascular: Yes: S1, S2 Respiratory: Yes: CTA Bilaterally Gastrointestinal: Yes: Soft Genitourinary: Yes: WNL Musculoskeletal: Yes: WNL Extremities: Yes: WNL Edema: No Neurological: Yes: Oriented Psychiatric: Yes: Oriented Labs: CBC, BMP 05/01/18 07:00 05/02/18 06:36 INR, PTT INR 1.07 (0.83-1.09) 04/30/18 13:33 - ....Imaging Ultrasound: Report Reviewed Problem List - Problems (1) CKD (chronic kidney disease) Code(s): N18.9 - CHRONIC KIDNEY DISEASE, UNSPECIFIED (2) Peripheral edema Code(s): R60.9 - EDEMA, UNSPECIFIED Assessment/Plan Current Medications Generic Name Dose Route Start Last Admin Trade Name Oksana PRN Reason Stop Dose Admin Aspirin 81 mg 05/01/18 10:00 05/02/18 09:42 Asa - PO 81 mg DAILY ARACELI Administration Gabapentin 300 mg 04/30/18 22:00 05/02/18 05:53 Neurontin - PO 300 mg TID ARACELI Administration Heparin Sodium (Porcine) 5,000 unit 05/01/18 22:00 05/02/18 09:42 Heparin - SQ 5,000 unit BID ARACELI Administration Hydralazine HCl 25 mg 05/01/18 22:00 05/02/18 09:42 Apresoline - PO 25 mg BID ARACELI Administration Insulin Aspart 1 vial 04/30/18 22:00 05/02/18 11:07 Novolog Vial Sliding Scale - SQ 4 unit ACHS ARACELI Administration Protocol Insulin Detemir 16 units 05/01/18 07:00 05/02/18 05:59 Levemir Vial SQ 16 units 0700 ARACELI Administration Insulin Detemir 14 units 04/30/18 22:00 05/01/18 21:45 Levemir Vial SQ 14 unit HS ARACELI Administration Metoprolol Succinate 50 mg 05/01/18 10:00 05/02/18 09:42 Toprol Xl - PO 50 mg DAILY ARACELI Administration Tamsulosin HCl 0.4 mg 05/01/18 08:30 05/02/18 09:41 Flomax - PO 0.4 mg 0830 ARACELI Administration Impression 1. CKD 2. HTN 3. DM 4. edema/fluid overload 5. BPH 6. nephrolithiasis Plan - renal function is improving - volume status is stable - will need outpt follow up and renal workup - avoid nsaids - low salt diet - echo reviewed - renal ultrasound reviewed - pt will follow with Dr Quinn after discharge Dr Emanuel
--- NOTE | 2018-05-02 11:28 | DS ---
Physical Examination Vital Signs: Vital Signs Temperature 98.2 F 05/02/18 06:00 Pulse Rate 71 05/02/18 06:00 Respiratory Rate 16 05/02/18 06:00 Blood Pressure 115/82 05/02/18 06:00 O2 Sat by Pulse Oximetry (%) 98 05/01/18 21:00 Findings/Remarks: patient seen and examined. Chart reviewed. Week and comfortable. Sitting in chair. No complaints. Wants to go home. Constitutional: Yes: No Distress, Calm Eyes: Yes: Conjunctiva Clear Neck: Yes: Supple Cardiovascular: Yes: Regular Rate and Rhythm Respiratory: Yes: CTA Bilaterally Gastrointestinal: Yes: Soft Edema: No Neurological: Yes: Alert Psychiatric: Yes: Alert Labs: CBC, BMP 05/01/18 07:00 05/02/18 06:36 Discharge Summary Reason For Visit: ACUTE KID INJURY/PHERIPHERAL EDEMA Current Active Problems TIMMY (acute kidney injury) (Acute) CKD (chronic kidney disease) (Acute) Peripheral edema (Acute) Hospital Course: 62 year old male with a PMH significant for DM2 on insulin, HTN, and BPH presented to the ED with increased swelling to lower legs and abdomen. He reports the swelling has gradually increased over the past month. He reports a 20 lb weight gain over the past 3 months; he has even gone up several pants sizes due to his increased abdominal girth. He is followed by content administrator Dr. Quinn who did a renal US in his office about 2 months ago and was told he needed further renal work up (patient is unsure of which diagnostics were recommended). However, patient was set to travel to his home country of [facility] for 2 months, so he was unable to follow up. Patient endorses taking his medications regularly. Denies chest pain, SOB, hemoptysis, fever, dizziness , syncope, n/v/d. Given Lasix 20 mg IV, patient reported urination following administration. He reports now feeling "80% better" than when he first arrived. Labs significant for BUN/Cr 33/2.7, his last Cr was 1.65 on 03/09/18. Troponin #1 , #2 and #2 pending, negative UA negative, ECG unremarkable for acute ischemia , CXR negative for pleural effusion, and no DVT on evan doppler of lower legs unremarkable. Recent Travel: [facility] for 2 months, returned yesterday. PAST MEDICAL HISTORY: HTN DM2 on insulin BPH PAST SURGICAL HISTORY: None patient treated with fluids Nephrology followed Stabilized Counseled about diet also Has ultrasound done today----question about gallbladder mass discussed with Patient in detail Patient would like to get MRI done as outpatient----would like to go home today I also agree that this can be done as outpatient Patient instructed to follow his PMD Dr. Rosales coming week Also advised to follow with content administrator as advised Medications reconciled Discussed with nursing staff also will discharge today Patient in agreement with all above. Condition: Improved - Instructions Diet, Activity, Other Instructions: Need MRI Gall bladder as out pt. f/u with next week F/u with Renal as advised Referrals: Shawanda Rosales MD [Primary Care Provider] - Disposition: HOME - Home Medications Comprehensive Discharge Medication List: Ambulatory Orders Gabapentin 300 mg PO TID 12/19/15 Losartan/Hydrochlorothiazide [Losartan-Hctz 100-25 mg Tab] 1 each PO DAILY 12/18 Omeprazole [Prilosec] 40 mg PO DAILY 12/19/15 Aspirin [ASA -] 81 mg PO DAILY 04/30/18 Clonazepam 0.5 mg PO DAILY 04/30/18 Clonidine HCl/Chlorthalidone [Clorpres 0.1-15 Tablet] 0.1 mg PO DAILY 04/30/18 Insulin Glargine,Hum.rec.anlog [Basaglar Kwikpen U-100] 14 units SQ HS 04/30/18 Insulin Glargine,Hum.rec.anlog [Basaglar Kwikpen U-100] 16 unit SQ DAILY Metoprolol Tartrate 50 mg PO DAILY 04/30/18 Sitagliptin Phosphate [Januvia] 100 mg PO DAILY 04/30/18 Tamsulosin HCl [Flomax] 0.4 mg PO DAILY 04/30/18 Vitamin E 400 unit PO DAILY 04/30/18 hydrALAZINE HCL [Apresoline -] 25 mg PO BID #60 tablet 05/02/18
[2018-05-02 12:14] VITALS: BP 145/85; PULSE 66
== END 2018-05-02 13:20 | disposition home or self-care (01) ==
LOC: JER 11:10 → JERBED 16:52 → J6S 05-01 05:26
PROVIDERS: ADMIT Hospitalist; ATTEND Internal Medicine
PROC: 3E033GC Introduction of Other Therapeutic Substance into Peripheral Vein, Percutaneous Approach (ICD-10-PCS; principal; 2018-04-30)
PROC: 3E013VG Introduction of Insulin into Subcutaneous Tissue, Percutaneous Approach (ICD-10-PCS; 2018-04-30)
PROC: 3E013GC Introduction of Other Therapeutic Substance into Subcutaneous Tissue, Percutaneous Approach (ICD-10-PCS; 2018-04-30)
DX: N17.9 Acute kidney failure, unspecified (principal); E11.22 Type 2 diabetes mellitus with diabetic chronic kidney disease; I12.9 Hypertensive chronic kidney disease with stage 1 through stage 4 chronic kidney disease, or unspecified chronic kidney disease; N18.9 Chronic kidney disease, unspecified; R60.0 Localized edema; Z79.4 Long term (current) use of insulin; E78.5 Hyperlipidemia, unspecified; N40.0 Benign prostatic hyperplasia without lower urinary tract symptoms; I25.10 Atherosclerotic heart disease of native coronary artery without angina pectoris; K21.9 Gastro-esophageal reflux disease without esophagitis; Z79.82 Long term (current) use of aspirin; Z87.891 Personal history of nicotine dependence; Z88.2 Allergy status to sulfonamides
CPT/HCPCS: 36415; 71046-TC-FY; 76700-TC; 76775-TC; 80048; 80053; 81003; 82550; 82553; 82570; 82962; 83880; 84156; 84484; 85025; 85027; 85610; 93005; 93010; 93306-TC; 93970-TC; 96372; 96374; 99284-25; G0378; J1644

== ENCOUNTER 2020-09-16 07:33 | Inpatient (IN) | payer OTHER ==
[2020-09-16 07:59] VITALS: BMI 29.5
[2020-09-16 08:36] LABS: BASO % 0.6 % (0-2.0); EOS % 5.6 % (0-4.5); HEMOGLOBIN 10.8 GM/dL (11.7-16.9); LYMPH % 18.1 % (8-40); MCH 26.1 pg (25.7-33.7); MCHC 32.6 g/dl (32.0-35.9); MEAN CELL VOLUME 80.2 fl (80-96); MEAN PLT VOLUME 8.7 fl (7.5-11.1); MONO % 9.6 % (3.8-10.2); NEUT % 66.1 % (42.8-82.8); PLATELET COUNT 242 K/MM3 (134-434); RBC 4.12 M/mm3 (4.00-5.60); RDW 14.8 % (11.9-15.9); WHITE BLOOD COUNT 8.6 K/mm3 (4.0-10.0)
[2020-09-16 08:52] LABS: POTASSIUM 4.1 mmol/L (3.5-5.1)
[2020-09-16 08:55] LABS: ALBUMIN 3.4 g/dl (3.4-5.0); CALCIUM 8.1 mg/dL (8.5-10.1)
[2020-09-16 08:56] LABS: BLOOD UREA NITROGEN 20.7 mg/dL (7-18)
[2020-09-16 08:58] LABS: CREATININE 2.1 mg/dL (0.55-1.3)
[2020-09-16 09:00] LABS: BILIRUBIN,TOTAL 0.4 mg/dL (0.2-1); TOT PROT 6.6 g/dl (6.4-8.2)
[2020-09-16 09:04] LABS: N-TERMINAL BNP 8.2 pg/ml (5-125)
[2020-09-16] MEDS ORDERED: LACTATED RINGERS SOLUTION 1000 ML INFUS.BAG IV ONE (09:04)
[2020-09-16 12:29] LABS: PH,URINE 6.5 (5.0-8.0); URINE APPEARANCE CLEAR; URINE BILIRUBIN NEGATIVE (NEGATIVE); URINE COLOR YELLOW; URINE GLUCOSE (UA) NEGATIVE (NEGATIVE); URINE KETONE NEGATIVE (NEGATIVE); URINE LEUK ESTERASE NEGATIVE (NEGATIVE); URINE NITRITE NEGATIVE (NEGATIVE); URINE PROTEIN NEGATIVE (NEGATIVE); URINE UROBILINOGEN 0.2 mg/dL (0.2-1.0)
[2020-09-16] MEDS ORDERED: ACETAMINOPHEN 325 MG TABLET (FP) PO PRN (16:11)
[2020-09-16] MEDS: INSULIN SLIDING SCALE (NOVOLOG) 1 VIAL SQ SCH ×2 (18:19→22:41)
[2020-09-16] MEDS: HEPARIN NA (PORCINE) 5,000 UNITS/ML 1ML VIAL SQ SCH (22:25)
[2020-09-16] MEDS: GABAPENTIN 300 MG CAPSULE PO SCH (22:26)
[2020-09-16] MEDS: INSULIN (LEVEMIR) 100 UNITS/ML UNITS SQ SCH (22:42)
[2020-09-17] MEDS: INSULIN SLIDING SCALE (NOVOLOG) 1 VIAL SQ SCH ×4 (06:22→23:03)
[2020-09-17] MEDS: GABAPENTIN 300 MG CAPSULE PO SCH ×3 (06:23→23:00)
[2020-09-17] MEDS: HEPARIN NA (PORCINE) 5,000 UNITS/ML 1ML VIAL SQ SCH ×3 (06:24→23:01)
[2020-09-17 07:59] LABS: BASO % 0.5 % (0-2.0); EOS % 6.8 % (0-4.5); HEMATOCRIT 33.2 % (35.4-49); HEMOGLOBIN 11.3 GM/dL (11.7-16.9); LYMPH % 23.5 % (8-40); MCH 26.8 pg (25.7-33.7); MCHC 33.9 g/dl (32.0-35.9); MEAN CELL VOLUME 78.9 fl (80-96); MONO % 8.3 % (3.8-10.2); NEUT % 60.9 % (42.8-82.8); PLATELET COUNT 274 K/MM3 (134-434); RBC 4.21 M/mm3 (4.00-5.60); WHITE BLOOD COUNT 8.9 K/mm3 (4.0-10.0)
[2020-09-17 08:20] LABS: POTASSIUM 4.2 mmol/L (3.5-5.1)
[2020-09-17 08:36] LABS: ALBUMIN 3.5 g/dl (3.4-5.0)
[2020-09-17 08:37] LABS: BLOOD UREA NITROGEN 18.5 mg/dL (7-18); CALCIUM 9.1 mg/dL (8.5-10.1); MAGNESIUM 1.6 mg/dL (1.8-2.4)
[2020-09-17 08:40] LABS: CREATININE 1.8 mg/dL (0.55-1.3); PHOSPHOROUS 3.7 mg/dL (2.5-4.9)
[2020-09-17 08:41] LABS: BILIRUBIN,TOTAL 0.5 mg/dL (0.2-1); TOT PROT 6.8 g/dl (6.4-8.2)
[2020-09-17] MEDS: PANTOPRAZOLE 40 MG TABLET PO SCH (10:47)
[2020-09-17] MEDS: ASPIRIN 81 MG CHEWABLE TABLETS PO SCH (10:47)
[2020-09-17] MEDS: INSULIN (LEVEMIR) 100 UNITS/ML UNITS SQ SCH ×2 (10:48→23:02)
[2020-09-17] MEDS: METOPROLOL TARTRATE 50 MG TABLET (FP) PO SCH (11:00)
[2020-09-17] MEDS: amLODIPine BESYLATE 5 MG TABLET (FP) PO SCH (11:00)
[2020-09-18] MEDS: HEPARIN NA (PORCINE) 5,000 UNITS/ML 1ML VIAL SQ SCH ×2 (06:35→14:16)
[2020-09-18] MEDS: PANTOPRAZOLE 40 MG TABLET PO SCH (06:35)
[2020-09-18] MEDS: GABAPENTIN 300 MG CAPSULE PO SCH ×2 (06:35→14:16)
[2020-09-18] MEDS: INSULIN SLIDING SCALE (NOVOLOG) 1 VIAL SQ SCH ×2 (06:59→12:19)
[2020-09-18] MEDS ORDERED: TAMSULOSIN HCL 0.4 MG CAP PO SCH (08:30)
[2020-09-18 10:17] LABS: BASO % 0.9 % (0-2.0); EOS % 7.8 % (0-4.5); HEMATOCRIT 33.9 % (35.4-49); HEMOGLOBIN 11.5 GM/dL (11.7-16.9); LYMPH % 28.9 % (8-40); MCH 27.1 pg (25.7-33.7); MCHC 34.1 g/dl (32.0-35.9); MEAN CELL VOLUME 79.4 fl (80-96); MEAN PLT VOLUME 8.4 fl (7.5-11.1); MONO % 8.7 % (3.8-10.2); NEUT % 53.7 % (42.8-82.8); PLATELET COUNT 261 K/MM3 (134-434); RBC 4.26 M/mm3 (4.00-5.60); RDW 14.6 % (11.9-15.9); WHITE BLOOD COUNT 7.6 K/mm3 (4.0-10.0)
[2020-09-18 10:35] LABS: ALBUMIN 3.7 g/dl (3.4-5.0); BLOOD UREA NITROGEN 18.3 mg/dL (7-18); MAGNESIUM 1.7 mg/dL (1.8-2.4)
[2020-09-18 10:38] LABS: CREATININE 1.7 mg/dL (0.55-1.3)
[2020-09-18 10:40] LABS: BILIRUBIN,TOTAL 0.4 mg/dL (0.2-1); TOT PROT 7.2 g/dl (6.4-8.2)
[2020-09-18 10:51] LABS: CALCIUM 9.1 mg/dL (8.5-10.1)
[2020-09-18] MEDS: ASPIRIN 81 MG CHEWABLE TABLETS PO SCH (11:04)
[2020-09-18] MEDS: METOPROLOL TARTRATE 50 MG TABLET (FP) PO SCH (11:04)
[2020-09-18] MEDS: amLODIPine BESYLATE 5 MG TABLET (FP) PO SCH (11:04)
[2020-09-18] MEDS: INSULIN (LEVEMIR) 100 UNITS/ML UNITS SQ SCH (11:07)
[2020-09-18 15:01] VITALS: BP 130/78; PULSE 88; TEMP 98.6
== END 2020-09-18 15:02 | disposition home or self-care (01) | DRG 53 ==
LOC: JER 07:33 → JERBED 08:06 → J4W 15:43
PROVIDERS: ADMIT Internal Medicine; ATTEND Nurse Practitioner Acute Care
DX: R56.9 Unspecified convulsions (principal); E11.22 Type 2 diabetes mellitus with diabetic chronic kidney disease; R55 Syncope and collapse; I12.9 Hypertensive chronic kidney disease with stage 1 through stage 4 chronic kidney disease, or unspecified chronic kidney disease; N18.9 Chronic kidney disease, unspecified; Z79.4 Long term (current) use of insulin; K21.9 Gastro-esophageal reflux disease without esophagitis; K76.0 Fatty (change of) liver, not elsewhere classified; N40.0 Benign prostatic hyperplasia without lower urinary tract symptoms; I25.10 Atherosclerotic heart disease of native coronary artery without angina pectoris; N18.32 Chronic kidney disease, stage 3b; R91.1 Solitary pulmonary nodule; Z20.822 Contact with and (suspected) exposure to COVID-19; F41.9 Anxiety disorder, unspecified
CPT/HCPCS: 36415; 70450-TC; 71045-TC-FY; 74176-TC; 80053; 81003; 82550; 82962; 83605; 83690; 83735; 83880; 84100; 84484; 85025; 93005; 93010; 93880-TC; 99285-25; C9803; J1644; Q9967; U0003

== ENCOUNTER 2020-10-02 14:18 | Emergency (ER) | payer OTHER ==
[2020-10-02 14:30] VITALS: TEMP 98; BMI 30.9
[2020-10-02] MEDS ORDERED: BAMLANIVIMAB 700 MG, ETESEVIMAB 1,400 MG in SODIUM CHLORIDE 250 ML IVPB ONE (14:40)
[2020-10-02 15:46] LABS: HEMATOCRIT 33.8 % (35.4-49); HEMOGLOBIN 11.2 GM/dL (11.7-16.9); MCH 26.5 pg (25.7-33.7); MCHC 33.1 g/dl (32.0-35.9); MEAN CELL VOLUME 80.1 fl (80-96); MEAN PLT VOLUME 8.6 fl (7.5-11.1); PLATELET COUNT 275 K/MM3 (134-434); RBC 4.23 M/mm3 (4.00-5.60); RDW 14.6 % (11.9-15.9); WHITE BLOOD COUNT 8.8 K/mm3 (4.0-10.0)
[2020-10-02 16:07] LABS: CALCIUM 8.9 mg/dL (8.5-10.1)
[2020-10-02 16:08] LABS: BLOOD UREA NITROGEN 12.4 mg/dL (7-18)
[2020-10-02 16:11] LABS: CREATININE 1.7 mg/dL (0.55-1.3)
[2020-10-02 17:26] VITALS: BP 120/64; PULSE 63
== END 2020-10-02 18:25 | disposition home or self-care (01) ==
LOC: JER 14:18
DX: U07.1 COVID-19 (principal)
CPT/HCPCS: 36415; 80048; 85027; 99284-25; M0239; Q0239; Q0245

== ENCOUNTER 2022-01-29 09:25 | Emergency (ER) | payer MEDICARE, OTHER ==
[2022-01-29 09:44] VITALS: RESP 18; TEMP 98.2; BMI 30.5
[2022-01-29 10:56] LABS: BASO % 0.8 % (0-2.0); EOS % 4.3 % (0-4.5); HEMATOCRIT 34.1 % (35.4-49); HEMOGLOBIN 11.5 GM/dL (11.7-16.9); LYMPH % 27.9 % (8-40); MCH 29.8 pg (25.7-33.7); MCHC 33.8 g/dl (32.0-35.9); MEAN CELL VOLUME 88.3 fl (80-96); MEAN PLT VOLUME 8.1 fl (7.5-11.1); MONO % 8.3 % (3.8-10.2); NEUT % 58.7 % (42.8-82.8); PLATELET COUNT 247 10^3/uL (134-434); RBC 3.86 M/mm3 (4.00-5.60); RDW 13.2 % (11.9-15.9); WHITE BLOOD COUNT 7.9 K/mm3 (4.0-10.0)
[2022-01-29 11:05] LABS: PROTHROMBIN TIME (PATIENT) 11.5 SEC (9.7-13.0)
[2022-01-29 11:08] LABS: ACTIVATED PTT 28.7 SECONDS (25.2-36.5)
[2022-01-29 11:19] LABS: ALBUMIN 3.9 g/dl (3.4-5.0); CALCIUM 8.9 mg/dL (8.5-10.1)
[2022-01-29 11:20] LABS: BLOOD UREA NITROGEN 21.4 mg/dL (7-18); MAGNESIUM 2.1 mg/dL (1.8-2.4)
[2022-01-29 11:23] LABS: CREATININE 1.9 mg/dL (0.55-1.3)
[2022-01-29 11:24] LABS: BILIRUBIN,TOTAL 0.5 mg/dL (0.2-1); TOT PROT 6.9 g/dl (6.4-8.2)
[2022-01-29 11:28] LABS: N-TERMINAL BNP 68.2 pg/ml (5-125)
[2022-01-29] MEDS ORDERED: ASPIRIN 81 MG CHEWABLE TABLETS PO ONE (13:08)
[2022-01-29] MEDS ORDERED: ASPIRIN 81 MG CHEWABLE TABLETS ONE (13:11)
[2022-01-29 17:05] VITALS: BP 158/85; PULSE 62
== END 2022-01-29 17:28 | disposition home or self-care (01) ==
LOC: JER 09:25
DX: R07.9 Chest pain, unspecified (principal)
CPT/HCPCS: 36415; 71045-TC-FY; 80053; 83735; 83880; 84484; 85025; 85610; 85730; 93005; 93010; 99285-25; C9803-CS; U0003; U0005

== ENCOUNTER 2024-02-10 18:03 | Emergency (ER) | payer OTHER ==
[2024-02-10 18:33] VITALS: BP 130/84; PULSE 93; RESP 18; TEMP 98.6; BMI 29.9
[2024-02-10] MEDS ORDERED: DOXYCYCLINE HYCLATE 100 MG CAPSULE PO ONE (19:41)
[2024-02-10] MEDS: DOXYCYCLINE HYCLATE 100 MG CAPSULE PO ONE (20:10)
[2024-02-10] MEDS: CLINDAMYCIN PHOSPHATE 1% TOPICAL GEL 30 GM TUBE TP ONE (20:10)
== END 2024-02-10 20:21 | disposition home or self-care (01) ==
LOC: JER 18:03
DX: L72.9 Follicular cyst of the skin and subcutaneous tissue, unspecified (principal)
CPT/HCPCS: 99283-25

== ENCOUNTER 2024-10-10 18:49 | Emergency (ER) | payer OTHER ==
[2024-10-10 18:59] VITALS: BP 147/75; PULSE 69; RESP 20; TEMP 98; BMI 29.4
[2024-10-10 21:00] LABS: ABSOLUTE IMMATURE GRANULOCYTES 0.03 x10^3/uL (0.0-0.031); BASOPHILS # 0.05 x10^3/uL (0.01-0.08); EOSINOPHIL % 6.8 % (0.8-7.0); EOSINOPHILS # 0.55 x10^3/uL (0.04-0.54); HEMATOCRIT 40.2 % (40.1-51.0); HEMOGLOBIN 13.2 g/dL (13.7-17.5); MCHC 32.8 g/dl (32.3-36.5); MEAN CELL VOLUME 89.5 fl (79.0-92.2); MEAN PLT VOLUME 9.2 fl (9.4-12.4); MONOCYTE % 9.9 % (5.3-12.2); PLATELET COUNT 224 x10^3/uL (163-337); RDW 11.8 % (12.2-16.4)
[2024-10-10 21:07] LABS: PH,URINE 5.5 (5.0-8.0); URINE APPEARANCE CLEAR; URINE BILIRUBIN NEGATIVE (NEGATIVE); URINE COLOR YELLOW; URINE GLUCOSE (UA) 3+ (NEGATIVE); URINE KETONE NEGATIVE (NEGATIVE); URINE LEUK ESTERASE NEGATIVE (NEGATIVE); URINE NITRITE NEGATIVE (NEGATIVE); URINE PROTEIN NEGATIVE (NEGATIVE); URINE UROBILINOGEN 0.2 mg/dL (0.2-1.0)
[2024-10-10 21:35] LABS: POTASSIUM 4.4 mmol/L (3.5-5.1)
[2024-10-10 21:36] LABS: BLOOD UREA NITROGEN 20.6 mg/dL (7-18); CALCIUM 9.8 mg/dL (8.5-10.1); MAGNESIUM 2.1 mg/dL (1.8-2.4)
[2024-10-10] MEDS ORDERED: ACETAMINOPHEN INJECTION 100 ML ONE (21:37)
[2024-10-10 21:41] LABS: BILIRUBIN,TOTAL 0.4 mg/dL (0.2-1)
[2024-10-10] MEDS: ACETAMINOPHEN 1000 MG/100 ML BAG IVPB ONE (21:59)
== END 2024-10-10 23:58 | disposition home or self-care (01) ==
LOC: JER 18:49
PROC: 3E033NZ Introduction of Analgesics, Hypnotics, Sedatives into Peripheral Vein, Percutaneous Approach (ICD-10-PCS; principal; 2024-10-10)
DX: G43.909 Migraine, unspecified, not intractable, without status migrainosus (principal); R42 Dizziness and giddiness
CPT/HCPCS: 0241U-QW; 36415; 70450-TC; 80053; 81003; 83735; 83880; 84484; 85025; 87086; 93005; 93010; 99285-25; J0131